=== PATIENT | female | born 1965 | race Caucasian/White ===

== ENCOUNTER 2016-11-14 12:40 | Day surgery (SDC) | payer BC ==
[~2016-11-14 12:40] MED LIST: Buffered Lidocaine 1% SYR 3ML* 3 ML/SYR SYRINGE INTRADERM ONE; Dexamethasone IV* 4 MG/ML 1 ML (4 MG) IV SLOW PU ONE; DiMENhydriNATE IV* 50 MG/ML VIAL IV PUSH PRN; Famotidine IV* 10 MG/ML 2 ML (20 mg) IV ONE; Furosemide IV* 10 MG/ML 2 ML VIAL (20 MG) ONE; HYDROmorphone INJ* 1 MG/ML CARPUJECT SYRINGE ONE; Midazolam* 1 MG/ML 2 ML VIAL (2 MG) ONE; Ondansetron INJ* 2 MG/ML VIAL IV PRN; PROCHLORPERAZINE INJ 5 MG/ML 2 ML VIAL IV PRN; fentaNYL* 50 MCG/ML 2 ML VIAL (100 MCG VIAL) IV PRN; fentaNYL* 50 MCG/ML 2 ML VIAL (100 MCG VIAL) ONE
[2016-11-14] MEDS ORDERED: Dexamethasone IV* 4 MG/ML 1 ML (4 MG) ONE (12:45)
[2016-11-14] MEDS ORDERED: Famotidine IV* 10 MG/ML 2 ML (20 mg) ONE (12:45)
[2016-11-14] MEDS ORDERED: fentaNYL* 50 MCG/ML 2 ML VIAL (100 MCG VIAL) ONE (13:27)
[2016-11-14] MEDS ORDERED: Succinylcholine* 20 MG/ML 10 ML VIAL ONE (14:26)
[2016-11-14] MEDS ORDERED: Acetaminophen TAB* 325 MG PO ONE (16:36)
[2016-11-14] MEDS ORDERED: Acetaminophen TAB* 325 MG ONE (16:39)
[2016-11-14 17:05] VITALS: BP 109/78
--- NOTE | 2016-11-15 08:24 | OP ---
DATE OF PROCEDURE: 11/14/16 - [facility] DATE OF : 61 SURGEON: Hanna Lopes MD ANESTHESIOLOGIST: MD Rory ANESTHESIA: General anesthesia with size 9.0 endotracheal tube. Refer to anesthesiologist's note for further details. PRE-OPERATIVE DIAGNOSIS: Recently diagnosed adenocarcinoma. OPERATIVE PROCEDURE: Bronchoscopy with endobronchial ultrasound-guided fine- needle aspiration of mediastinal and hilar nodes, lung cancer staging. DESCRIPTION OF PROCEDURE: Informed consent was obtained from the patient prior to the procedure after all the risks and complications associated with the procedure were thoroughly explained. Appropriate time-out was agreed on by attending staff prior to the procedure. The patient was placed supine on the operating room table. Venodyne and Fanny Hugger was placed. A flexible Olympus bronchoscope was inserted through the ET tube. The ET tube positioning was confirmed to be 2 cm above the level of evelio. Bronchoscope was then advanced into the right bronchial tree which was inspected. No endobronchial lesions were noted. Minimal secretions were noted and were suctioned out. Bronchoscope was then advanced into the left bronchial tree. No endobronchial lesions were noted. Bronchoscope was then with-drawn and EBUS bronchoscope was inserted through ET tube. Systematic scanning of the lymph nodes, beginning with R4 lymph node was begun. R4 lymph node was minimally enlarged at 0.4 cm. R4 lymph node was accessed with three passes. Adequate lymphatic tissue was seen, no malignant cells were noted. Station 7 lymph node was then accessed with 3 passes. Adequate lymphatic tissue was not seen on rapid on- site evaluation. Bronchoscope was then advanced into left bronchial tree, which was inspected. Hilar nodes were not enlarged. Station L4 lymph node was measuring at 4 mm. L4 was accessed with 3 passes. Lymphatic tissue was noted on rapid on-site evaluation with no evidence of malignant cells. The patient tolerated the procedure well. The patient was extubated and seen in recovery in optimal condition. Rest of the specimen was placed in CytoLyt. [id number]/[facility] #: [id number] [facility]
== END 2016-11-14 17:08 | disposition home or self-care (01) ==
LOC: OR 12:40
PROVIDERS: ATTEND Internal Medicine
DX: J45.909 Unspecified asthma, uncomplicated (principal); E11.9 Type 2 diabetes mellitus without complications; F32.9 Major depressive disorder, single episode, unspecified; F41.9 Anxiety disorder, unspecified; Z79.82 Long term (current) use of aspirin; Z88.0 Allergy status to penicillin; I10 Essential (primary) hypertension; Z87.891 Personal history of nicotine dependence
CPT/HCPCS: 88172; 88173; 88305; A9270-GY; J0330; J1100; J1170; J1940; J2250; J3010

== ENCOUNTER 2018-01-16 09:41 | Emergency (ER) | payer BC ==
[2018-01-16 10:59] VITALS: BP 117/69
--- NOTE | 2018-01-16 12:43 | ED ---
Jasiel Sandoval Stephanie, scribed for Cristiano Paez MD on 01/16/18 at 1040 . Dizziness - HPI Summary HPI Summary: The pt is a 52 y/o F presenting to the ED with c/o dizziness that began on . Symptoms include nasal congestion, productive cough with green sputum, ear ache and lightheadedness. She denies nausea, speech difficulties, vision changes and trouble with ambulation. - History Of Current Complaint Chief Complaint: EDDizziness Stated Complaint: DIZZY Time Seen by Provider: 01/16/18 10:12 Hx Obtained From: Patient Onset/Duration: Still Present Timing: Days - 3 Severity Currently: Moderate Character: Lightheaded, Dizzy Aggravating Factor(s): Nothing Alleviating Factor(s): Nothing Associated Signs And Symptoms: Positive: Other: - nasal congestion, productive cough with green sputum, ear ache and lightheadedness. Negative: Nausea, Unsteady Gait, Visual Changes, Inability to Walk, Slurred Speech - Allergies/Home Medications Allergies/Adverse Reactions: Allergies Allergy/AdvReac Type Severity Reaction Status Date / Time MS Erythromycin Allergy Intermediate Hives Verified 11/14/16 13:00 [Erythromycin] MS Clarithromycin Allergy Unknown Verified 11/14/16 13:00 [From Biaxin] Reaction Details MS Penicillins [Penicillins] Allergy Unknown Verified 11/14/16 13:00 Reaction Details Home Medications: Home Medications Aspirin EC TAB* [Ecotrin EC Low Dose 81 MG*] 81 mg PO DAILY 01/16/18 [History Confirmed 01/16/18] Cholecalciferol TAB* [Vitamin D TAB*] 5,000 unit PO DAILY 01/16/18 [History Confirmed 01/16/18] Cranberry [Cranberry] 400 mg PO DAILY 01/16/18 [History Confirmed 01/16/18] Levothyroxine TAB* [Synthroid TAB*] 88 mcg PO DAILY 01/16/18 [History Confirmed 01/16/18] PARoxetine HCL TAB* [Paxil TAB*] 30 mg PO DAILY 01/16/18 [History Confirmed 06/26] Simvastatin TAB(NF) [Zocor(NF)] 20 mg PO DAILY 01/16/18 [History Confirmed 01/16] Vitamin B Complex CAP* [B Complex CAP*] 1 cap PO DAILY 01/16/18 [History Confirmed 01/16/18] traZODone TAB* [Desyrel TAB*] 150 mg PO BEDTIME PRN 01/16/18 [History Confirmed 01/16/18] PMH/Surg Hx/FS Hx/Imm Hx Endocrine/Hematology History: Reports: Hx Diabetes - TYPE 2, Hx Thyroid Disease Cardiovascular History: Denies: Hx Hypertension, Hx Pacemaker/ICD Respiratory History: Reports: Hx Asthma, Hx Sleep Apnea History: Denies: Hx Renal Disease Musculoskeletal History: Reports: Hx Arthritis Sensory History: Reports: Hx Contacts or Glasses - glasses Denies: Hx Hearing Aid Opthamlomology History: Reports: Hx Contacts or Glasses - glasses Psychiatric History: Reports: Hx Anxiety, Hx Depression Denies: Hx Panic Disorder - Cancer History Cancer Type, Location and Year: NEWLY DX - LUNG Hx Chemotherapy: No Hx Radiation Therapy: No - Surgical History Surgery Procedure, Year, and Place: x 3. gallbladder removed. right ankle repair. Left lower lobectomy Hx Anesthesia Reactions: No Infectious Disease History: No Infectious Disease History: Denies: Hx Clostridium Difficile, Hx Hepatitis, Hx Human Immunodeficiency Virus (HIV), Hx of Known/Suspected MRSA, Hx Shingles, Hx Tuberculosis, Hx Known/ Suspected VRE, Hx Known/Suspected VRSA, History Other Infectious Disease, Traveled Outside the [place] in Last 30 Days - Family History Known Family History: Negative: Renal Disease - Social History Occupation: Employed Full-time Lives: Alone Alcohol Use: Rare Hx Substance Use: No Substance Use Type: Reports: None Hx Tobacco Use: Yes Smoking Status (MU): Former Smoker Type: Cigarettes Length of Time of Smoking/Using Tobacco: 10 years Have You Smoked in the Last Year: No Review of Systems Negative: Fever Negative: Blurred Vision Positive: Ear Ache, Nasal Discharge Positive: Cough Negative: Nausea Neurological: Negative - difficulty with ambulation, Other - dizziness, lightheadedness Negative: Slurred Speech All Other Systems Reviewed And Are Negative: Yes Physical Exam - Summary Physical Exam Summary: Appearance: The patient is well-nourished in no acute distress and in no acute pain. Skin: The skin is warm and dry and skin color reflects adequate perfusion. HEENT: The head is normocephalic and atraumatic. The pupils are equal and reactive. The conjunctivae are clear and without drainage. Nares are patent and without drainage. Mouth reveals moist mucous membranes and the throat is without erythema and exudate. The external ears are intact. The ear canals are patent and without drainage. The tympanic membranes are intact. Neck: the neck is supple with full range of motion and non-tender. There are no carotid bruits. There is no neck vein distension. Respiratory: Chest is non-tender. Lungs are clear to auscultation and breath sounds are symmetrical and equal. Cardiovascular: Heart is regular rate and rhythm. There is no murmur or rub auscultated. There is no peripheral edema and pulses are symmetrical and equal. Abdomen: The abdomen is soft and non-tender. There are normal bowel sounds heard in all four quadrants and there is no organomegaly palpated. Musculoskeletal: There is no back tenderness noted. Extremities are non-tender with full range of motion. There is good capillary refill. There is no peripheral edema or calf tenderness elicited. Neurological: Patient is alert and oriented to person, place and time. The patient has symmetrical motor strength in all four extremities. Cranial nerves are grossly intact. Deep tendon reflexes are symmetrical and equal in all four extremities. The pt has nystagmus to the left on [place] Hallpike maneuver. Psychiatric: The patient has an appropriate affect and does not exhibit any anxiety or depression. Triage Information Reviewed: Yes Vital Signs On Initial Exam: Initial Vitals Temp Pulse Resp BP Pulse Ox 97.1 F 73 18 120/74 100 01/16/18 09:47 01/16/18 09:47 01/16/18 09:47 01/16/18 09:47 01/16/18 09:47 Vital Signs Reviewed: Yes Diagnostics - Vital Signs Vital Signs Temp Pulse Resp BP Pulse Ox 01/16/18 10:28 20 01/16/18 09:47 97.1 F 73 18 120/74 100 - Laboratory Lab Statement: Any lab studies that have been ordered have been reviewed, and results considered in the medical decision making process. - EKG 09:56 Cardiac Rate: NL EKG Rhythm: Sinus Rhythm - 66 BPM Re-Evaluation - Re-Evaluation First Eval Re-Evaluation Time: 10:45 Change: Unchanged - ED physician discussed plan of discharge with the pt and the pt agrees. Dizzy Course/Dx - Course Course Of Treatment: Ms. Maloney presented with mild vertiginous symptom in the context of several days of nasal congetion and a little left ear pain this AM now resolved. She has some risk factors for a central etiology; she has a history of HTN and DM although she is almost off all her meds from losing weight. She also has a history of lung CA but had a negative PET scan this November. She has a mildly positive [place]-Hallpike with a slight increase in her symptoms and slight nystagmus to the left. I spolke with Dr. Gaming who agrees that this sounds peripheral and I will treat her accordingly. - Diagnoses Provider Diagnoses: Vertigo Discharge - Sign-Out/Discharge Documenting (check all that apply): Discharge/Admit/Transfer - discharge - Discharge Plan Condition: Stable Disposition: HOME Prescriptions: Meclizine TAB* [Antivert 12.5 TAB*] 25 mg PO TID PRN #40 tab PRN Reason: Dizziness Patient Education Materials: Vertigo (ED) Referrals: Vita ARGUETA,Ned Fernandez [Primary Care Provider] - 2 Days Additional Instructions: Return to the ED with new or worsening symptoms. - Billing Disposition and Condition Condition: STABLE Disposition: HOME The documentation as recorded by the Jasiel meza Stephanie accurately reflects the service I personally performed and the decisions made by me, Cristiano Paez MD.
== END 2018-01-16 10:58 | disposition home or self-care (01) ==
LOC: ED 09:41
DX: R42 Dizziness and giddiness (principal); Z87.891 Personal history of nicotine dependence; Z88.3 Allergy status to other anti-infective agents; Z88.0 Allergy status to penicillin
CPT/HCPCS: 93005; 99282

== ENCOUNTER 2019-07-16 10:02 | Emergency (ER) | payer BC ==
[2019-07-16 10:27] LABS: ABS Eosinophils 0.1 10^3/ul (0-0.6); ABS Lymphocytes 1.3 10^3/ul (1.0-4.8); ABS Monocytes 0.5 10^3/ul (0-0.8); ABS Neutrophils 4.7 10^3/ul (1.5-7.7); Eosinophil % 2.2 %; Hematocrit 38 % (35-47); Hemoglobin 12.9 g/dL (12.0-16.0); Lymphocyte % 19.5 %; Mean Corpuscular HGB Conc 34 g/dL (31-36); Mean Corpuscular Hemoglobin 31 pg (27-31); Mean Corpuscular Volume 90 fL (80-97); Platelet Count 171 10^3/uL (150-450); Red Blood Count 4.21 10^6 /uL (3.70-4.87); Red Cell Distribution Width 13 % (10-15); White Blood Count 6.6 10^3/uL (3.5-10.8)
--- NOTE | 2019-07-16 10:28 | ED ---
Palpitations / Dysrhythmia - HPI Summary HPI Summary: The patient is a 54 y/o F presenting to [facility] with a chief complaint of gradually worsening heart palpitations over the last month. She reports that previous to the last month, she would experience fluttering and shakiness occasionally, but now these symptoms are occurring more frequently almost every day and lasting for a few hours at a time. She denies any SOB or CP when the irregular heartbeats are present or with ambulation. She states that the episodes are worse in the morning when she wakes up but are not onset more with exertion. Currently, her symptoms are rated 0/10 in severity as the palpitations are mild but still present. She has not had any recent medication changes, although she notes that she had been taking a larger dosage of Trazadone every day for the last 2-3 weeks, but she stopped this more recently due to the palpitations. She also took her BP at a drug store before arriving today and it was 145 mmHg systolic, which is more elevated than her baseline. She does not have a cardiac history, but both of her parents have a history of atrial fibrillation. 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 PMHx: Type II DM, lung cancer with removal of left lower lobectomy, thyroid disease, asthma, anxiety, depression. FHx: atrial fibrillation in parents. Former smoker, weekly EtOH, no substance use. Medications reviewed. Allergies noted. - History of Current Complaint Chief Complaint: EDDysrhythmPalp Time Seen by Provider: 07/16/19 10:08 Hx Obtained From: Patient Onset/Duration: Gradual Onset, Lasting Weeks - one month, Still Present Severity Initially: Mild Severity Currently: Moderate Character: Irregular, Fluttering Aggravating: Other - worse in the morning when waking up Alleviating: Medication - was taking more Trazadone than usual but stopped, Nothing - resolves on own - Allergy/Home Medications Allergies/Adverse Reactions: Allergies Allergy/AdvReac Type Severity Reaction Status Date / Time clarithromycin [From Biaxin] Allergy Hives Verified 07/16/19 10:05 erythromycin base AdvReac Hives Verified 07/16/19 10:05 [From Erythrocin] Home Medications: Home Medications Fluticasone NASAL SPRAY 50MCG* [Flonase NASAL SPRAY 50MCG*] 1 spray BOTH NARES BID 07/16/19 [History Confirmed 07/16/19] LoraTADine TAB(NF) [Claritin 10 MG TAB(NF)] 10 mg PO BEDTIME 07/16/19 [History Confirmed 07/16/19] PMH/Surg Hx/FS Hx/Imm Hx Endocrine/Hematology History: Reports: Hx Diabetes - TYPE 2, Hx Thyroid Disease Cardiovascular History: Denies: Hx Hypertension, Hx Pacemaker/ICD Respiratory History: Reports: Hx Asthma, Hx Sleep Apnea History: Denies: Hx Renal Disease Musculoskeletal History: Reports: Hx Arthritis Sensory History: Reports: Hx Contacts or Glasses - glasses Denies: Hx Hearing Aid Opthamlomology History: Reports: Hx Contacts or Glasses - glasses Psychiatric History: Reports: Hx Anxiety, Hx Depression Denies: Hx Panic Disorder - Cancer History Cancer Type, Location and Year: LUNG CA Hx Chemotherapy: No Hx Radiation Therapy: No - Surgical History Surgical History: Yes Surgery Procedure, Year, and Place: x 3. gallbladder removed. right ankle repair. Left lower lobectomy Hx Anesthesia Reactions: No Infectious Disease History: No Infectious Disease History: Denies: Hx Clostridium Difficile, Hx Hepatitis, Hx Human Immunodeficiency Virus (HIV), Hx of Known/Suspected MRSA, Hx Shingles, Hx Tuberculosis, Hx Known/ Suspected VRE, Hx Known/Suspected VRSA, History Other Infectious Disease, Traveled Outside the [place] in Last 30 Days - Family History Known Family History: Positive: Cardiac Disease - afib in parents Negative: Renal Disease - Social History Alcohol Use: Weekly Alcohol Amount: 1-2 weekly Hx Substance Use: No Substance Use Type: Reports: None Hx Tobacco Use: Yes Smoking Status (MU): Former Smoker Type: Cigarettes Length of Time of Smoking/Using Tobacco: 10 years Have You Smoked in the Last Year: No Review of Systems Positive: Palpitations - fluttering, irregular, shakiness. Negative: Chest Pain Negative: Shortness Of Breath All Other Systems Reviewed And Are Negative: Yes Physical Exam - Summary Physical Exam Summary: Constitutional: Well-developed, Well-nourished, Alert. (-) Distressed Skin: Warm, Dry HENT: Normocephalic; Atraumatic Eyes: Conjunctiva normal Neck: Musculoskeletal ROM normal neck. (-) JVD, (-) Stridor, (-) Nuchal rigidity Cardio: Rhythm regular, rate normal, Heart sounds normal; Intact distal pulses; Radial pulses are 2+ and symmetric. (-) Murmur Pulmonary/Chest wall: Effort normal. (-) Respiratory distress, (-) Wheezes, (-) Rales Abd: Soft, (-) tenderness, (-) Distension, (-) Guarding, (-) Rebound Musculoskeletal: (-) Edema Lymph: (-) Cervical adenopathy Neuro: Alert, Oriented x3 Psych: Mood and affect Normal Triage Information Reviewed: Yes Vital Signs On Initial Exam: Initial Vitals Temp Pulse Resp BP Pulse Ox 97.8 F 71 16 151/108 100 07/16/19 10:04 07/16/19 10:04 07/16/19 10:04 07/16/19 10:04 07/16/19 10:04 Vital Signs Reviewed: Yes Procedures - Sedation Patient Received Moderate/Deep Sedation with Procedure: No Diagnostics - Vital Signs Vital Signs Temp Pulse Resp BP Pulse Ox 07/16/19 10:04 97.8 F 71 16 151/108 100 - Laboratory Result Diagrams: 07/16/19 10:16 07/16/19 10:16 Lab Statement: Any lab studies that have been ordered have been reviewed, and results considered in the medical decision making process. - EKG 1016 Cardiac Rate: Other Rate - 76 BPM Summary of EKG Findings: An EKG at 1016 reveals ectopic atrial rhythm at 76 BPM. No STEMI. ED physician has reviewed and interpreted this EKG. Re-Evaluation - Re-Evaluation First Eval Re-Evaluation Time: 11:12 Change: Improved Comment: She is not experiencing any symptoms. We discussed all results, consult with cardiology, and plan for outpatient holter monitor with discharge. Course/Dx - Course Course Of Treatment: 54-year-old female with no past medical history presents with palpitations. - blood pressure here 130 systolic, physical exam unremarkable. EKG atrial ectopic, no tachycardia. Discussed with cardiology and offered Holter monitor outpatient. Electrolytes w Mg 1.9, K 4.1 - Diagnoses Provider Diagnoses: Heart palpitations - Physician Notifications Discussed Care Of Patient With: Diego Vidal - cardiology Time Discussed With Above Provider: 10:56 Instructed by Provider To: Other - I discussed the patient's case with Dr. Vidal concerning the patient's case and asked him to review her EKG. He agrees with ectopic atrial rhythm, and he does not believe this is causing her symptoms. He recommends outpatien Holter monitor. Discharge ED - Sign-Out/Discharge Documenting (check all that apply): Patient Departure - Patient will be discharged home. - Discharge Plan Condition: Stable Disposition: HOME Patient Education Materials: Heart Palpitations (DC) Referrals: Ned Gorman PA [Primary Care Provider] - 3 Days Additional Instructions: You were seen in the emergency department for palpitations. Your labs and EKG did not show a cause for this. We discussed with our on-call field crop harvest worker who recommends an outpatient Holter monitor that you can get from your primary care doctor. Please follow up with your primary care doctor in the next 2-3 days and return to the emergency department for worsening patient's, chest pain, passing out or concerning symptoms. It was a pleasure taking care of you today. - Billing Disposition and Condition Condition: STABLE Disposition: Home - Attestation Statements Document Initiated by Israel: Yes Documenting Scribe: April Snyder Provider For Whom Israel is Documenting (Include Credential): Dr. Obed Mixon MD Scribe Attestation: IApril, scribed for Dr. Obed Mixon MD on 07/16/19 at 1237. Scribe Documentation Reviewed: Yes Provider Attestation: The documentation as recorded by the April meza accurately reflects the service I personally performed and the decisions made by me, Dr. Obed Mixon MD Status of Scribe Document: Viewed
[2019-07-16 10:44] LABS: Albumin/Globulin Ratio 1.5 (1-3); BUN/Creatinine Ratio 20.8 (8-20); Calcium 9.2 mg/dL (8.6-10.3); EGFR African American 93.8 (>60); EGFR Non-African American 77.5 (>60); Globulin 2.7 g/dL (2-4); Magnesium 1.9 mg/dL (1.9-2.7); Potassium 4.1 mmol/L (3.5-5.0); Total Bilirubin 0.4 mg/dL (0.2-1.0); Total Protein 6.7 g/dL (6.4-8.9)
[2019-07-16 11:37] LABS: TSH (Thyroid Stimulating Horm) 1.28 mcIU/mL (0.34-5.60)
[2019-07-16 12:03] VITALS: BP 136/89
== END 2019-07-16 12:03 | disposition home or self-care (01) ==
LOC: ED 10:02
DX: R00.2 Palpitations (principal); E11.9 Type 2 diabetes mellitus without complications; J45.909 Unspecified asthma, uncomplicated; F41.9 Anxiety disorder, unspecified; F32.9 Major depressive disorder, single episode, unspecified; Z90.49 Acquired absence of other specified parts of digestive tract; Z85.118 Personal history of other malignant neoplasm of bronchus and lung; Z87.891 Personal history of nicotine dependence; Z79.899 Other long term (current) drug therapy; Z88.1 Allergy status to other antibiotic agents
CPT/HCPCS: 36415; 80053; 83735; 84443; 85025; 93005; 99282

== ENCOUNTER 2019-11-15 15:40 | Emergency (ER) | payer BC ==
--- OUTSIDE RECORDS SUMMARY | 2019-11-15 15:48 | XMS REPORT | Continuity of Care Document ---
:1965 Author Organization [facility] Care Team Providers Name Role Phone TANK DUEÑAS Admitting Physician TANK DUEÑAS Attending Physician Allergies and Intolerances No Allergy Data in the System Medications No data In The System Medications At Time Of Discharge No data In The System Problems No Data in the system Procedures No data in the system Results Pathology Results Order:PATHOLOGY CYTOLOGY HISTOLCollected Date : 10/20/2019 12:00:00 AM HISTORY: Z01.419 Z11.51 DATE OF LAST PAP SMEAR: 04-06-16. RESULT OF LAST PAP SMEAR: NEG... POST MENOPAUSAL. SCREENING. SPECIMEN DESCRIPTION: SUREPATH PAP SCREENING, CERVICAL ENDOCERVICAL SPECIMEN ADEQUACY SATISFACTORY GENERAL CATEGORIZATION: NEGATIVE FOR INTRAEPITHELIAL LESION OR MALIGNANCY DESCRIPTIVE DIAGNOSIS: NEGATIVE FOR INTRAEPITHELIAL LESION OR MALIGNANCY. ATROPHIC CHANGES. *HPV TESTING AT THE REQUEST OF THE ORDERING PROVIDER, TESTING IS PENDING WITH A SEPARATE REPORT TO FOLLOW.* LIZ HERCULES (ASCP) (CASE SIGNED 10/23/2019) Order:PATHOLOGY CYTOLOGY HISTOLCollected Date: 10/20/2019 12:00:00 AM SPECIMEN(S) RECEIVED: APTIMA HPV ASSAY, SUREPATH SPECIMEN, CONCURRENT PAP CASE [id number] RESULTS: HPV NEGATIVE FOR HIGH RISK HPV TYPES TESTED: 16,18,31,33,35,39,45,51,52,56,58,59,66 AND 68 THE APTIMA HPV ASSAY IS A NUCLEIC ACID AMPLIFICATION TEST FOR THE QUALITATIVE DETECTION OF E6/E7 VIRAL MRNA FROM 14 HIGH-RISK HPV TYPES. THIS TEST HAS NOT BEEN APPROVED BY THE FDA FOR USE ON SUREPATH SPECIMENS. THIS TEST HAS BEEN VALIDATED AT [facility] AND IS LICENSED FOR USE BY THE [facility], IN LIEU OF FDA APPROVAL . THIS TEST CAN BE SUBJECT TO BOTH FALSE NEGATIVE AND FALSE POSITIVE RESULTS. A NEGATIVE APTIMA HPV TEST BY ITSELF DOES NOT RULE OUT CURRENT OR FUTURE CERVICAL DYSPLASIA/CARCINOMA. ELECTRONICALLY SIGNED OUT BY LIZ LAMA (ASCP) COMPLETED BY MS ON 2019-10-23 Social History Code Code System Social History Description Dates Observed Observation [id number] [facility] CT Current Smoking Unknown if ever Status smoked UNK AdministrativeGender Sex Assigned At Unknown Vital Signs No data in the system Goals Section No data in the system Health Concerns No data in the systemEncounter Diagnosis Date Code Code System Diagnosis Status Z01.419 ICD10 ENC MONKEY TRAINER EX GEN RTN W/O ABNORM FIND Active Advance Directives No Data in the System Encounters Encounter Diagnosis Location Date ENC MONKEY TRAINER EX GEN RTN W/O ABNORM FIND [facility] 10/20/2019 Family History Family history not obtained Functional Status No data in the system Immunizations No data in the system Medical Equipment No data in the system Mental Status No data in the system Assessment and Plan Assessments No data in the systemPlan Of Treatment No data in the systemPending Tests No data in the system Hospital Discharge Instructions No data in the system Reason for Visit No data in the system
--- NOTE | 2019-11-15 16:05 | UC ---
FLU HPI - HPI Summary HPI Summary: Onset 11/13/19, cough and malaise; today worsening symptoms with body aches, chills, face feels hot - History of Current Complaint Stated Complaint: BODY ACHES, HEADACHE,COUGH Hx Obtained From: Patient ?: No Onset/Duration: Sudden Onset, Lasting Days Severity Currently: Mild Severity Initially: Mild Associated Signs & Symptoms: Positive: Fever, Myalgia, Sore Throat, Headache - Allergy/Home Medications Allergies/Adverse Reactions: Allergies Allergy/AdvReac Type Severity Reaction Status Date / Time clarithromycin [From Biaxin] Allergy Hives Verified 07/16/19 10:05 erythromycin base AdvReac Hives Verified 07/16/19 10:05 [From Erythrocin] pollen Allergy Congestion Uncoded 11/15/19 16:15 Home Medications: Home Medications Albuterol HFA INHALER* [Ventolin HFA Inhaler*] 2 inh INH .Q4-6H PRN 12/19/14 [ History Confirmed 11/15/19] Aspirin EC TAB* [Ecotrin EC Low Dose 81 MG*] 81 mg PO QPM 01/16/18 [History Confirmed 11/15/19] Levothyroxine TAB* [Synthroid TAB*] 88 mcg PO DAILY 01/16/18 [History Confirmed 11/15/19] PARoxetine HCL TAB* [Paxil TAB*] 30 mg PO DAILY 01/16/18 [History Confirmed 04/28] Simvastatin TAB(NF) [Zocor(NF)] 20 mg PO QPM 01/16/18 [History Confirmed ] Metformin HCl [Metformin HCl ER] 500 mg PO QPM 12/25/18 [History Confirmed 11/14] Fluticasone NASAL SPRAY 50MCG* [Flonase NASAL SPRAY 50MCG*] 1 spray BOTH NARES BID PRN 07/16/19 [History Confirmed 11/15/19] Albuterol HFA INHALER* [Ventolin HFA Inhaler*] 2 puff INH Q4H PRN #1 mdi [Rx] Budesonide/Formote 80/4.5(NF) [Symbicort 80/4.5 (NF)] 2 puff INH BID PRN #1 puff 11/15/19 [Rx] Cholecalciferol TAB* [Vitamin D TAB*] 5,000 units PO QPM 11/15/19 [History Confirmed 11/15/19] Dulaglutide [Trulicity] 1.5 mg SQ WEEKLY 11/15/19 [History Confirmed 11/15/19] Fexofenadine HCl 180 mg PO QPM 11/15/19 [History Confirmed 11/15/19] traZODone TAB* [Desyrel TAB*] 150 mg PO BEDTIME 11/15/19 [History Confirmed 04/28] PMH/Surg Hx/FS Hx/Imm Hx Previously Healthy: Yes - Surgical History Surgical History: Yes Surgery Procedure, Year, and Place: x 3. gallbladder removed. right ankle repair. Left lower lobectomy - Family History Known Family History: Positive: Cardiac Disease - afib in parents Negative: Renal Disease - Social History Alcohol Use: Weekly Alcohol Amount: 1-2 weekly Substance Use Type: None Smoking Status (MU): Former Smoker Type: Cigarettes Length of Time of Smoking/Using Tobacco: 10 years Have You Smoked in the Last Year: No When Did the Patient Quit Smoking/Using Tobacco: 27 years ago Review of Systems All Other Systems Reviewed And Are Negative: Yes Constitutional: Positive: Fever, Fatigue ENT: Positive: Sore Throat Respiratory: Positive: Cough Musculoskeletal: Positive: Myalgia Neurological/Mental Status: Positive: Headache Is Patient Immunocompromised?: No Physical Exam Triage Information Reviewed: Yes Appearance: Well-Nourished, Ill-Appearing, Pain Distress Vital Signs Reviewed: Yes ENT: Positive: Pharyngeal erythema, TM bulging Neck exam: Normal Respiratory Exam: Normal Respiratory: Positive: Chest non-tender, Lungs clear, Normal breath sounds Cardiovascular Exam: Normal Cardiovascular: Positive: RRR, No Murmur, Pulses Normal Abdominal Exam: Normal Bowel Sounds: Positive: Present Musculoskeletal Exam: Normal Neurological Exam: Normal Psychological Exam: Normal Skin Exam: Normal Flu Course/Dx - Course Course Of Treatment: hx obtained, exam performed ,meds reviewed, rapid flu obtained. - Differential Dx/Diagnosis Differential Diagnosis/HQI/PQRI: Influenza, Upper Respiratory Infection Provider Diagnosis: Influenza A Discharge ED - Sign-Out/Discharge Documenting (check all that apply): Patient Departure All imaging exams completed and their final reports reviewed: No Studies - Discharge Plan Condition: Stable Disposition: HOME Prescriptions: Albuterol HFA INHALER* [Ventolin HFA Inhaler*] 2 puff INH Q4H PRN #1 mdi PRN Reason: Cough Budesonide/Formote 80/4.5(NF) [Symbicort 80/4.5 (NF)] 2 puff INH BID PRN #1 puff PRN Reason: Sob/Wheezing Patient Education Materials: Influenza (ED) Forms: *Work Release Referrals: Ned Gorman PA [Primary Care Provider] - Additional Instructions: 1.Lots of rest 2. Increase fluids 3. Fresh air 4. Tylenol and Advil for pain and fever. - Billing Disposition and Condition Condition: STABLE Disposition: Home
[2019-11-15 16:14] VITALS: BP 108/67
[2019-11-15 16:34] LABS: Influenza A Molecular POSITIVE (Negative)
== END 2019-11-15 17:00 | disposition home or self-care (01) ==
LOC: UCCORT 15:40
DX: J10.1 Influenza due to other identified influenza virus with other respiratory manifestations (principal); Z87.891 Personal history of nicotine dependence; Z88.1 Allergy status to other antibiotic agents; Z91.09 Other allergy status, other than to drugs and biological substances